=== PATIENT | female | born 1955 | race African-American/Black ===

== ENCOUNTER 2017-11-24 13:55 | Outpatient (CLI) | payer BC ==
--- NOTE | 2017-11-24 15:22 | ULT ---
LEFT LOWER EXTREMITY VENOUS DUPLEX EXAM: Date: 11/24/17 HISTORY: Leg pain with swelling and pain behind the knee. FINDINGS: Real-time color Doppler evaluation of the left lower extremity was performed from groin to calf. This includes evaluation of the common femoral, superficial and profunda femoral, saphenous, popliteal, t rifurcation, and posterior tibial veins. This shows a patent deep venous system. There is normal comp ressibility and augmentation. There is no evidence of deep venous thrombosis. IMPRESSION: No evidence of deep venous thrombosis of the left lower extremity. POS: GHADA
== END 2017-11-24 13:56 | disposition home or self-care (01) ==
LOC: SCSULT 13:55
PROVIDERS: ATTEND Family Medicine
DX: M79.605 Pain in left leg (principal); R60.0 Localized edema

== ENCOUNTER 2018-11-09 09:20 | Day surgery (SDC) | payer BC ==
[2018-11-09] MEDS ORDERED: diphenhydrAMINE 25 MG CAP PO SCH (10:15)
[2018-11-09] MEDS ORDERED: Acetaminophen 500 MG TAB PO SCH (10:15)
[2018-11-09 15:21] VITALS: BP 137/63; TEMP 98.5
== END 2018-11-09 16:07 | disposition home or self-care (01) ==
LOC: ONC/OP 09:20
PROVIDERS: ATTEND Internal Medicine Hematology & Oncology
PROC: 30233N1 Transfusion of Nonautologous Red Blood Cells into Peripheral Vein, Percutaneous Approach (ICD-10-PCS; principal; 2018-11-09)
DX: D64.9 Anemia, unspecified (principal); D69.6 Thrombocytopenia, unspecified; Z88.5 Allergy status to narcotic agent
CPT/HCPCS: 36430; 86850; 86900; 86901; P9016; Q0163

== ENCOUNTER 2018-12-04 09:53 | Outpatient (CLI) | payer BC ==
--- NOTE | 2018-12-04 13:30 | CT ---
CT OF THE CHEST AND ABDOMEN AND PELVIS WITH IV CONTRAST: INDICATION: A 63-year-old female with iron deficiency anemia. History of recently diagnosed colon cancer. COMPARISON: CTA of the thorax dated 10/05/2013. CONTRAST: 85 cc of Isovue 370 was administered. FINDINGS: CHEST: There is a new 5.6 mm pulmonary nodule within the apical segment of the right upper lobe on image 11 of series 8. There is a new 1 cm mixed solid cystic lesion within the posterior segment of the right upper lobe on image 19 of series 8 which is new. There is a stable mm pulmonary nodule right upper lobe on image 23 of series 8. There are reticular opacities with some nodularity in the area of prior infiltrate seen on the compar blanca exam 10/18 likely related to scarring. There is 1 small nodule in this location measuring 6 mm. No suspicious nodule is seen within the left lung. No pathologically enlarged lymph node is seen wi thin the mediastinum or hilar regions. No enlarged axillary lymphadenopathy is noted. There is prom inence of the right thyroid lobe. ABDOMEN: There are numerous hypodense masses within the liver. One of the largest is seen within segment 5 of the right hepatic lobe on image 50 of series 6 measuring 6.3 cm. There is a 1.1 cm enlarged lymph node within the gastrohepatic ligament on image 57 of series 6. The re are prominent lymph nodes within the portocaval region. One of the most prominent is seen on imag e 63 of series 6 measuring 1.3 cm. There are enlarged lymph nodes within the right lower quadrant me sentery. One of the largest on image 83 series 6 measures 1.4 cm. Additional on 86 of series 6 carlos ures 1.4. Additional on 86 of series 6 measures 1.4 cm. There is a heterogeneous near-circumferential mass involving the cecum likely corresponding to the pa tient's recently diagnosed colon cancer. There is a suggestion of tumor involvement of the TI. Small bowel is not obstructed. The remaining segments of colon appear within normal limits. PELVIS: Reproductive structures are surgically absent. The bladder is partially decompressed. The rectum an d perirectal soft tissues are unremarkable-appearing. No pathologically enlarged lymph nodes are braydon ssly evident within the pelvis. OSSEOUS STRUCTURES: There is diffuse osteopenia. There is mild thoracolumbar scoliosis. There is postsurgical change of bilateral rotator cuff repairs. No suspicious osteolytic or osteoblastic lesion is identified. IMPRESSION: Findings consistent with a very large circumferential mass involving the cecum with involvement of th e TI with mesenteric and upper abdominal lymphadenopathy. There is also evidence of hepatic metastat ic disease. There is also evidence of highly suspicious right-sided lung metastatic lesions. One of the largest pulmonary nodules within the right upper lobe measures 1 cm. POS: OFF
== END 2018-12-04 09:54 | disposition home or self-care (01) ==
LOC: SCSCT 09:53
PROVIDERS: ATTEND Internal Medicine Hematology & Oncology
DX: D50.0 Iron deficiency anemia secondary to blood loss (chronic) (principal); R97.0 Elevated carcinoembryonic antigen [CEA]; J44.9 Chronic obstructive pulmonary disease, unspecified; R59.0 Localized enlarged lymph nodes; R91.8 Other nonspecific abnormal finding of lung field; C22.8 Malignant neoplasm of liver, primary, unspecified as to type; K63.89 Other specified diseases of intestine
CPT/HCPCS: 71260; 74177; 82565

== ENCOUNTER 2018-12-07 17:02 | Observation (INO) | payer BC ==
[2018-12-07 17:29] VITALS: BMI 51.4
[2018-12-07] MEDS ORDERED: Iron Sucrose Complex 300 MG in Sodium Chloride 0.9% 250 ML 250 ML IVPB SCH (18:00)
[2018-12-07] MEDS ORDERED: IRON SUCROSE COMPLEX 100 MG/5 ML SLOW IVP SCH (18:00)
[2018-12-07] MEDS ORDERED: Senokot S 8.6-50 MG TAB PO PRN (18:13)
[2018-12-07] MEDS ORDERED: Ondansetron PF 4 MG/2 ML Vial IVP PRN (18:13)
[2018-12-07] MEDS ORDERED: Acetaminophen 325 MG TAB PO PRN (18:13)
[2018-12-07] MEDS ORDERED: Ondansetron ODT 4 MG TAB PO PRN (18:13)
[2018-12-07] MEDS: Sodium Chloride 0.9% 1,000 ML IV SCH (18:16)
[2018-12-07] MEDS ORDERED: Famotidine 20 MG TAB PO SCH (21:00)
[2018-12-07 22:08] LABS: INR-International Normal Ratio 1.5; PTT 35.7 SEC (22.9-36.1); Prothrombin Time 18.2 SEC (12.0-14.7)
[2018-12-07] MEDS ORDERED: Warfarin Sodium 10 MG TAB PO SCH (23:45)
--- NOTE | 2018-12-08 01:18 | HP ---
PRIMARY CARE PHYSICIAN: Dr. Gallegos in [place]. ONCOLOGIST: Dr. Dailey. SUPERVISOR PIPE FINISHING: Dr. Natasha Swift. CHIEF COMPLAINT: Iron-deficient anemia, recent diagnosis of colon cancer with mets. HISTORY OF PRESENT ILLNESS: Ms. Rolon is a very pleasant 63-year-old female, who was a direct admit from Dr. Dailey's office for an iron transfusion for iron-deficient anemia. The patient reports that this has been ongoing for several weeks. Her hemoglobin has been in between 6 and 8. She received 2 units of packed red blood cells several weeks ago. Hemoglobin came up to 8, and then within a week, it dropped. She reports that she recently had an upper and lower GI over at [facility]. Reports that they took several biopsies, removed several polyps, and then yesterday Dr. Dailey told her that she had stage IV colon cancer with metastases to her liver and her lungs. A week ago, she had an iron infusion at the [facility], had a syncopal episode, hence Dr. Dailey wanted her to be on the monitor when she had the next one. The patient is on Coumadin for a history of pulmonary emboli. PAST MEDICAL HISTORY: Pertinent for hypertension, asthma, and then recently iron-deficiency anemia and colon cancer with mets. PAST SURGICAL HISTORY: Bilateral knee surgery, 2 C-sections, bilateral shoulder surgery, and hysterectomy. PSYCHIATRIC HISTORY: None. SOCIAL HISTORY: Denies any smoking history. Denies any alcohol or drugs. ALLERGIES: TO CODEINE. HOME MEDICATIONS: 1. Albuterol inhaler 2 puffs daily. 2. Cetirizine 10 mg p.o. b.i.d. 3. Diltiazem 240 mg p.o. daily. 4. Vitamin D2 5000 units one capsule weekly. 5. Nexium 40 mg p.o. daily. 6. Advair 1 puff b.i.d. 7. Magnesium oxide daily. 8. Singulair 10 mg p.o. at bedtime. 9. Spironolactone 25 mg p.o. daily. 10. Coumadin, Tuesday and 10 mg tablet; Tuesday, Tuesday, Tuesday, Tuesday, Tuesday, 5 mg. REVIEW OF SYSTEMS: The patient reports some nausea. Denies any other symptoms. All systems are reviewed and are negative unless mentioned in the HPI. PHYSICAL EXAMINATION: VITAL SIGNS: Temperature is 98.2, pulse is 64, respirations are 16, pO2 sats are 99% on room air, and blood pressure is 102/55. CONSTITUTIONAL: The patient appears nontoxic appearing. She is alert and oriented to person, place, and time. HEENT: Head is atraumatic and normocephalic. Eyes; pupils equally round and reactive to light, extraocular muscles are intact. ENT; mouth exam is normal. Mucous membranes are moist. NECK: Normal range of motion. Trachea is midline. RESPIRATORY/CHEST: Breath sounds are clear. Chest expansion is equal. CARDIOVASCULAR: Regular heart rate and rhythm. Heart sounds are normal. ABDOMEN: Nontender. Bowel sounds are heard. BACK: Normal inspection, no tenderness. EXTREMITIES: Upper extremity; normal range of motion, motor strength is normal, radial pulses are normal. Lower extremity; normal range of motion, motor strength is normal, sensation is intact, pedal pulses are normal, no calf tenderness. NEUROLOGIC: The patient is oriented to person, place, and time. Speech is normal. SKIN: Warm and dry. Normal in color. ASSESSMENT/PLAN: 1. Iron-deficiency infusion, 300 mg Venofer. Recheck comp met and CBC in a.m. Restart home medications. We will ask Dr. Dailey to consult. When he is agreeable, we will discharge home. 2. Hypertension. We will restart home medications. 3. Gastroesophageal reflux disease. Restart home medications. 4. Asthma. Restart home medications. This appears stable. 5. The patient is already on gastrointestinal and deep venous thrombosis prophylaxis. 6. Case was discussed with Dr. Ghosh, who agrees with plan. Job ID: [id number]
[2018-12-08 04:55] LABS: ALT (SGPT) 10 U/L (8-55); AST (SGOT) 17 U/L (5-34); Albumin 3.4 g/dL (3.4-4.8); Alkaline Phosphatase 120 U/L (40-110); Anion Gap 13 mmol/L (10-20); BUN (Urea Nitrogen) 7 mg/dL (9.8-20.1); Bilirubin, Total 0.3 mg/dL (0.2-1.2); Calc. Creatinine Clearance 137 mL/min (70-130); Calcium 9.5 mg/dL (7.8-10.44); Carbon Dioxide 23 mmol/L (23-31); Chloride 105 mmol/L (98-107); Estimated GFR-MDRD 68; Globulin 3.3 g/dL (2.4-3.5); Glucose 92 mg/dL (80-115); Potassium 4.1 mmol/L (3.5-5.1); Protein, Total 6.7 g/dL (6.0-8.3); Sodium 137 mmol/L (136-145)
[2018-12-08 04:56] LABS: #Eosinphils 0.4 thou/uL (0.0-0.7); #Lymphocytes 2.5 thou/uL (1.20-3.40); #Monocytes 0.8 thou/uL (0.11-0.59); #Neutrophils 5.8 thou/uL (1.40-6.50); %Basophils 0.5 % (0.0-1.0); %Monocytes 8.1 % (0.0-10.0); %Neutrophils 61.4 % (42.0-75.0); Elliptocytes SLIGHT = 2-5 cells (100X) (0-1/hpf); Hemoglobin 8.4 g/dL (12.0-16.0); Hypochromia SLIGHT = 6-15 cells (100X) (0-5/hpf); MDiff Complete? YES; Mean Corpuscular Hemoglobin 21.7 pg (27.0-31.0); Mean Corpuscular Volume 72.5 fL (78.0-98.0); Mean Platelet Volume 4.9 fL (7.4-10.4); Microcytosis SLIGHT = 6-15 cells (100X) (0-5/hpf); Platelet Count 245 thou/uL (130-400); Platelet Morphology Comment Appears Adequate; Polychromasia SLIGHT = 2-3 cells (100X) (0-2/hpf); Red Blood Cell (RBC) Count 3.85 mill/uL (4.20-5.40); White Blood Cell (WBC) Count 9.4 thou/uL (4.8-10.8)
[2018-12-08] MEDS ORDERED: Mometasone/Formoterol 120 PUFF INHALER INH SCH (06:30)
[2018-12-08] MEDS ORDERED: Spironolactone 25 MG TAB PO SCH (09:00)
[2018-12-08] MEDS ORDERED: Magnesium Oxide 400 MG TAB PO SCH (09:00)
[2018-12-08] MEDS ORDERED: Loratadine 10 MG TAB PO SCH (09:00)
[2018-12-08] MEDS: Sodium Chloride 0.9% 1,000 ML IV SCH (09:26)
[2018-12-08 12:01] VITALS: BP 113/56; TEMP 98.5
[2018-12-08] MEDS ORDERED: Warfarin Sodium 5 MG TAB PO SCH (17:00)
[2018-12-08] MEDS ORDERED: FLU VACC QS2019-20(6MOS UP)/PF 60 MCG/0.5 ML SYRINGE IM ONE (17:45)
[2018-12-08] MEDS ORDERED: Montelukast Sodium 10 mg Tablet PO SCH (21:00)
--- NOTE | 2018-12-09 02:00 | DIS ---
DATE OF ADMISSION: 12/07/2018 DATE OF DISCHARGE: 12/08/2018 DISCHARGE DIAGNOSES: 1. Anemia. 2. Colon cancer with metastasis. 3. History of deep venous thrombosis, pulmonary embolus. HOSPITAL COURSE: The patient is a 63-year-old female who was admitted to the hospital for IV infusion of iron since she had a syncopal episode last time. The patient received iron transfusion, she tolerated well. No issues. Her 8.4. Her INR was 1.5. I have told her to take a 10 mg of Coumadin tonight and then continue her normal schedule and she will follow up with [facility] on Tuesday. HOME MEDICATIONS: Will be as of the following, nothing has changed: 1. Singulair 10 mg daily. 2. Diltiazem 240 mg daily. 3. Spironolactone 25 mg daily. 4. Warfarin 10 mg on alternative days and 5 mg on other days. 5. Sertraline 10 mg b.i.d. 6. Esomeprazole 40 mg p.o. daily. 7. Fluticasone and salmeterol 50 mcg b.i.d. PHYSICAL EXAMINATION: VITAL SIGNS: Temperature 98.5, 78, 16, 99% on room air, 113/56. GENERAL: She is awake, alert, and oriented x3. Does not appear in distress. CV: S1, S2 present. No murmurs, rubs or gallops. ABDOMEN: Soft and nontender. Bowel sounds are present x2. Job ID: [id number]
[2018-12-10] MEDS ORDERED: Warfarin Sodium 10 MG TAB PO SCH (17:00)
== END 2018-12-08 16:16 | disposition home or self-care (01) ==
LOC: EEVIPCON 17:02 → 2SW 17:02
PROVIDERS: ADMIT Internal Medicine; ATTEND Internal Medicine
DX: D50.9 Iron deficiency anemia, unspecified (principal); C18.9 Malignant neoplasm of colon, unspecified; C78.00 Secondary malignant neoplasm of unspecified lung; C78.7 Secondary malignant neoplasm of liver and intrahepatic bile duct; I10 Essential (primary) hypertension; J45.909 Unspecified asthma, uncomplicated; Z79.01 Long term (current) use of anticoagulants; Z79.899 Other long term (current) drug therapy; Z88.5 Allergy status to narcotic agent
CPT/HCPCS: 36415; 80053; 85025; 85610; 85730; 96361; 96365; 96366; G0378; J1756; J7050; Q0162